=== PATIENT | male | born 1945 | race Caucasian/White ===

== ENCOUNTER 2018-06-17 10:04 | Day surgery (SDC) | payer BC ==
[2018-06-17] MEDS ORDERED: LIDOCAINE 2% MDV (20MG/ML) 20ML VIAL IV ONE (10:05)
[2018-06-17] MEDS ORDERED: PROPOFOL 10 MG/ML VIAL IV ONE (10:05)
--- NOTE | 2018-06-18 09:30 | Operative Note ---
DATE OF SURGERY: 06/17/2018 OPERATION: COLONOSCOPY to the cecum with cold biopsy forceps polypectomy x2. INDICATION: History of adenomatous polyps, family history of colon cancer in patient's brother. He presents after 5 years for surveillance colonoscopy. ANESTHESIA: Intravenous sedation was administered by the department of anesthesiology and included Diprivan titrated to effect. PROCEDURE: Following informed consent from this alert individual including a discussion of the risks and benefits of the procedure and an opportunity for the patient to ask questions, the patient was in the left lateral decubitus position. A digital rectal examination was performed. No abnormalities were noted. Following this, the Olympus [id number] video colonoscope was inserted into the rectum without resistance. The rectal mucosa had a normal appearance with normal folds and distensibility. The colonoscope was advanced up through the bowel to the level of the cecum without much difficulty. Throughout the remainder of the bowel, the mucosa appeared normal, the folds were normal, and the bowel was fairly well distensible. The cecum was defined by noting the appendiceal orifice and ileocecal valve. The terminal ileum was cannulated and found to be unremarkable. From the base of the cecum, retroflexion was accomplished and failed to demonstrate changes. The colonoscope was then slowly withdrawal. In the ascending colon, there were 2 diminutive 3 mm polyps noted each removed with application of biopsy forceps. No other changes were noted upon withdrawal throughout the remainder of the colon until the rectum was reached. Within the rectum, retroflexion accomplished following air insufflation revealed small internal hemorrhoids. The endoscope was straightened and removed. The patient tolerated the procedure well and was returned to the recovery area in stable condition. IMPRESSION: 1. Two diminutive ascending colon polyps removed with biopsy forceps. 2. Small internal hemorrhoids. RECOMMENDATIONS: Further recommendations will be forthcoming pending results of pathology obtained today. The patient most likely will undergo surveillance colonoscopy in 5 years' time pending biopsy. Followup will be with Dr. Law. As always, thank you for allowing me to participate in the care of your patient. CC: DO KRISTOPHER Apple
== END 2018-06-17 12:30 | disposition home or self-care (01) ==
LOC: HOP 10:04
PROVIDERS: ATTEND Internal Medicine Gastroenterology
DX: Z12.11 Encounter for screening for malignant neoplasm of colon (principal); Z86.010 Personal history of colon polyps; Z80.0 Family history of malignant neoplasm of digestive organs; D12.2 Benign neoplasm of ascending colon; E11.9 Type 2 diabetes mellitus without complications; I48.91 Unspecified atrial fibrillation; I10 Essential (primary) hypertension

== ENCOUNTER 2018-12-09 07:00 | Day surgery (SDC) | payer BC ==
[~2018-12-09 07:00] MED LIST: ACETAMINOPHEN 1,000 MG/100 ML BTL IVPB ONE; CEFAZOLIN 2 Gram 2 GM/50 ML BAG IVPB ONE; FAMOTIDINE 20MG TABLET PO ONE; MECLIZINE 25 MG TABLET PO ONE; METOCLOPRAMIDE 10 MG TABLET PO ONE
[2018-12-09] MEDS ORDERED: ONDANSETRON HCL IV 4 MG/2 ML VIAL IVP ONE (07:01)
[2018-12-09] MEDS ORDERED: ROCURONIUM BROMIDE 50MG/5ML VIAL IV ONE (07:01)
[2018-12-09] MEDS ORDERED: SUGAMMADEX SODIUM 200 MG/2 ML VIAL IV ONE (07:01)
[2018-12-09] MEDS ORDERED: LIDOCAINE 2% MDV (20MG/ML) 20ML VIAL IV ONE (07:01)
[2018-12-09] MEDS ORDERED: 0.9 % SODIUM CHLORIDE 10 ML VIAL IVP ONE (07:01)
[2018-12-09] MEDS ORDERED: PROPOFOL 10 MG/ML VIAL IV ONE (07:01)
[2018-12-09] MEDS ORDERED: SEVOFLURANE 250 ML INH ONE (07:01)
[2018-12-09] MEDS ORDERED: FENTANYL PF 100MCG/2ML VIAL IV ONE (07:01)
[2018-12-09] MEDS ORDERED: EPHEDRINE SULFATE 50 MG/ML ML IV ONE (07:01)
[2018-12-09] MEDS ORDERED: BUPIVACAINE LIPOSOME/PF 133MG/10ML VIAL IV ONE (07:01)
[2018-12-09] MEDS ORDERED: MIDAZOLAM HCL 2MG/2ML VIAL IV ONE (07:01)
[2018-12-09] MEDS ORDERED: SUCCINYLCHOLINE 20 MG/ML 10ML IVP ONE (07:01)
[2018-12-09] MEDS ORDERED: RINGERS SOLUTION,LACTATED 1,000 ML IV ONE (07:45)
[2018-12-09] MEDS ORDERED: BUPIVACAINE 0.25% W/EPI MPF 30ML VIAL SQ ONE (09:26)
[2018-12-09] MEDS ORDERED: HYDROCODONE/APAP 5/325MG TABLET PO ONE (10:08)
--- NOTE | 2018-12-10 08:30 | Operative Note ---
DATE OF SURGERY: 12/09/2018 SURGEON: Brandon Araiza DO PREOPERATIVE DIAGNOSIS: Incarcerated ventral hernia. POSTOPERATIVE DIAGNOSIS: Incarcerated ventral hernia. OPERATION: Laparoscopic ventral herniorrhaphy with mesh. INDICATION: The patient is a 72-year-old male who presented to the clinic with pain and bulging in his upper abdomen. We did discuss repair. Risks, benefits, and alternatives were discussed. Risks include bleeding, infection, acute or chronic pain, recurrence. He understood this fully. PROCEDURE: After consent was signed, questions answered, he was taken to the operating room and placed in a supine position. General anesthesia was administered per the department of anesthesia. The patient 's abdomen was shaved of hair and prepped and draped in the usual sterile fashion. Adequate timeout was performed. He did receive preoperative antibiotic as well as DVT prophylaxis. At this time, the infraumbilical region was anesthetized with a total of 5 mL of 0.25% Sensorcaine with epinephrine. A 2 cm infraumbilical incision was made. This was carried down to the anterior rectus fascia. This was incised. Ame clamps placed at the fascial edges and brought up into the wound. Stay sutures of 0 Vicryl were placed. The posterior rectus sheath was identified and incised. The peritoneal cavity was entered bluntly. At this time, a 10 mm blunt [place] port was placed and adequate pneumoperitoneum was established. Under direct visualization, additional 5 mm right flank and 5 mm left flank ports were then placed. The patient had an incarcerated hernia at the base of the falciform ligament. This was reduced containing omentum. The falciform ligament was then taken down with the [place] [employer]. The area itself measured about 1.5 cm. At this time, a 10 x 15 Proceed mesh was obtained. Four preplaced cardinal stitches were placed in the mesh. This was placed in the intraperitoneal position. The mesh was then mapped out. The cephalad and caudad stitches were grasped transfascially and held in place. The east-west stitches were held in place in a similar fashion. At this time, a tacking device was used to tack the mesh in place in a 360-degree fashion. Tacks were placed about 1 cm apart. Intercrown was also placed. This mesh was centered on the hernia well. At this time, the transfascial stitches were tied down. These were trimmed. Skin dimpling was released. At this time, the scope was flipped around. There was no bleeding noted. No bowel injury noted. At this time, pneumoperitoneum was released. All ports removed. The fascia was closed with endoclose device prior to desufflation. Skin at all ports closed with 4-0 Vicryl. He was taken to the recovery room in stable condition. FINDINGS ON SURGERY: Incarcerated ventral hernia, repaired as above. MTDD
== END 2018-12-09 10:33 | disposition home or self-care (01) ==
LOC: SUR 07:00
PROVIDERS: ATTEND Surgery
DX: K43.6 Other and unspecified ventral hernia with obstruction, without gangrene (principal); I48.91 Unspecified atrial fibrillation; Z79.01 Long term (current) use of anticoagulants; I10 Essential (primary) hypertension; N40.0 Benign prostatic hyperplasia without lower urinary tract symptoms; E11.9 Type 2 diabetes mellitus without complications; G47.33 Obstructive sleep apnea (adult) (pediatric); Z86.73 Personal history of transient ischemic attack (TIA), and cerebral infarction without residual deficits
CPT/HCPCS: 76942; C1781; C9290; J0330; J2405; J3490; J7120